=== PATIENT | female | born 1935 | race Caucasian/White ===

== ENCOUNTER 2019-08-09 16:30 | Inpatient (IN) ==
--- OUTSIDE RECORDS SUMMARY | 2019-08-09 16:32 | External Medical Summary | Continuity of Care Document ---
:1935 Author Name Jayesh MMirta, Provider Address Unavailable Unavailable , Care Team Providers Name Role Phone Unavailable Unavailable Unavailable ANGIE DELEON Unavailable Unavailable Problems Active medical history not documented Allergies and Adverse Reactions No Known Drug Allergies (Allergy) Medications Melatonin 3 MG Oral Tablet , M.D. Refills: 0 Tylenol Arthritis Pain 8 Hour 650 MG TBCR , M.D. Refills: 0 Vitamin D3 25 MCG (1000 UT) Oral Tablet , M.D. Refills: 0 Quinapril HCl - 40 MG Oral Tablet , M.D. Refills: 0 Methyldopa 500 MG Oral Tablet , M.D. Refills: 0 Atenolol 50 MG Oral Tablet , M.D. Refills: 0 Procedures History of Hysterectomy Status: Complete d History of Total Knee Arthroplasty Statu s: Completed Immunizations Influenza On: 2010 Family History Father Family history of Reported Family History Of Heart Disease S tatus: Active Grandmother Family history of Cancer Status: Active Grandfather Family history of Reported Family History Of Heart Disease S tatus: Active Social History - Smoking Status Never smoked tobacco Plan of Treatment Planned Observations Planned Goals not documented Results No Known Results Results not documented
--- OUTSIDE RECORDS SUMMARY | 2019-08-09 16:33 | External Medical Summary | Continuity of Care Document ---
:1935 Author Name Jayesh M.Delmi, Provider Address Unavailable Unavailable , Care Team Providers Name Role Phone Unavailable Unavailable Unavailable ANGIE DELEON Unavailable Unavailable Problems Active medical history not documented Allergies and Adverse Reactions No Known Drug Allergies (Allergy) Medications Atenolol 50 MG Oral Tablet , M.D. Refills: 0 Methyldopa 500 MG Oral Tablet , M.D. Refills: 0 Quinapril HCl - 40 MG Oral Tablet , M.D. Refills: 0 Vitamin D3 25 MCG (1000 UT) Oral Tablet , M.D. Refills: 0 Tylenol Arthritis Pain 8 Hour 650 MG TBCR , M.D. Refills: 0 Melatonin 3 MG Oral Tablet , M.D. [...]
[2019-08-09 19:35] LABS: Basophils # (auto) 0.04 K/uL (0-0.2); Basophils % (auto) 0.4 %; Eosinophils # (auto) 0.05 K/uL (0-0.5); Eosinophils % (auto) 0.5 %; Hematocrit (blood only) 48.3 % (37-47); Hemoglobin 16.2 g/dL (12.0-16.0); Immature Granulocytes # (auto) 0.24 K/uL (0.00-0.02); Immature Granulocytes % (auto) 2.2 %; Lymphocytes # (auto) 1.71 K/uL (1.2-3.4); Mean Corpuscular Hemoglobin 29.8 pg (25-34); Mean Corpuscular Hgb Conc 33.5 g/dL (32-36); Mean Corpuscular Volume 88.8 fL (80-100); Mean Platelet Volume 10.3 fL (7.4-10.4); Monocytes # (auto) 0.76 K/uL (0.11-0.59); Monocytes % (auto) 7.1 %; Neutrophils # (auto) 7.91 K/uL (1.4-6.5); Neutrophils % (auto) 73.8 %; Platelet Count 334 K/uL (130-400); RDW Coefficient of Variation 14.4 % (11.5-14.5); RDW Standard Deviation 46.9 fL (36.4-46.3); Red Blood Count 5.44 M/uL (4.2-5.4); White Blood Count 10.71 K/uL (4.8-10.8)
--- NOTE | 2019-08-09 19:41 | XRay Report ---
SINGLE VIEW CHEST CLINICAL HISTORY: Atypical chest pain. FINDINGS: An AP, portable, upright chest radiograph is obtained No prior studies are available for co mparison at the time of dictation. The examination is degraded by portable technique and patient rota tion. The heart is enlarged. The mitral annulus is densely calcified. Nonspecific interstitial thicke brendan is likely chronic. Scattered calcified granulomas are observed. No airspace consolidation or lar ge pleural effusion is identified. No pneumothorax is seen. The skeletal structures are osteopenic. T he bony thorax is grossly intact. Calcified joint bodies are noted in the left shoulder. IMPRESSION: Cardiomegaly with no acute cardiopulmonary abnormality. ACT 112: Negative or not required by law. Electronically signed by: Haroldo Mercer M.D. 08/09/2019 7:39 PM
[2019-08-09 19:42] LABS: Alanine Aminotransferase 20 U/L (12-78); Albumin Level 4.2 gm/dl (3.4-5.0); Aspartate Aminotransferase 17 U/L (15-37); BUN Creatinine Ratio 25.3 (10-20); Blood Urea Nitrogen 30 mg/dl (7-18); Calcium 10.2 mg/dl (8.5-10.1); Carbon Dioxide 27 mmol/L (21-32); Chloride 102 mmol/L (98-107); Creatinine Clr Calc Pharmacy 32.1 ml/min; Est GFR (African American) 47.4; Est GFR (Non-African American) 40.9; Glucose 123 mg/dl (70-99); Lipase 201 U/L (73-393); Magnesium 1.8 mg/dl (1.8-2.4); Sodium 139 mmol/L (136-145)
[2019-08-09 19:46] LABS: Partial Thromboplastin Ratio 0.9; Partial Thromboplastin Time 24.7 Seconds (21.0-31.0); Prothrombin Time 10.4 Seconds (9.0-12.0)
[2019-08-09 19:53] LABS: Albumin Globulin Ratio 1.1 (0.9-2); Alkaline Phosphatase 65 U/L (45-117); Bilirubin,Total 0.6 mg/dl (0.2-1); NT Pro B Type Natriuretic Pept 3907 pg/ml (0-1800); Total Protein 8.2 gm/dl (6.4-8.2); Troponin I < 0.015 ng/ml (0-0.045)
[2019-08-09 20:47] LABS: Appearance Urine Clear (Clear); Bacteria Urine Automated 1+ (Negative); Bilirubin Urine Negative (Negative); Blood Urine Negative (Negative); Color Urine Yellow; Epithelial Cell Urine Auto >30 /lpf (0-5); Glucose Urine UA Negative (Negative); Ketones Urine Negative (Negative); Leukocyte Esterase Urine Negative (Negative); Nitrite Urine Negative (Negative); Protein Urine 1+ (Negative); Specific Gravity Urine 1.016 (1.000-1.030); Urobilinogen Urine Negative (Negative)
[2019-08-09] MEDS ORDERED: SODIUM CHLORIDE 0.9% 500 ML IV ONE (21:39)
[2019-08-09] MEDS ORDERED: OPTIRAY 320 125ml IV PRN (21:55)
[2019-08-09] MEDS ORDERED: LABETALOL HCL IV 5 MG/ML 20ML IV STA (22:43)
[2019-08-09] MEDS ORDERED: NITROGLYCERIN 2% OINTMENT 30GM TUBE EXT SCH (23:15)
--- NOTE | 2019-08-09 23:20 | CT Scan Report ---
UNENHANCED CT OF THE BRAIN; CT ANGIOGRAM OF THE BRAIN; CT ANGIOGRAM OF THE NECK CLINICAL HISTORY: Dizziness. COMPARISON STUDY: No priors. TECHNIQUE: Unenhanced axial CT scan of the brain is performed. Subsequently, following the IV adminis tration of 120 of Opt[address] 320, CT angiogram of the head and neck was performed from the aortic arch t o the vertex. Images are reviewed in the axial, sagittal, and coronal planes. 3-D MIPS images are cre ated and assessed. IV contrast was administered without complication. All measurements were calculate d based on NASCET criteria. A dose lowering technique was utilized adhering to the principles of ALA RA. CT DOSE: 1067.93 mGy.cm FINDINGS: Brain parenchyma: There is age-related involutional change noting moderate subcortical and periventri cular microangiopathic disease. There is no hemorrhage, mass effect, or evidence of acute territorial ischemia by CT criteria. There is no evidence of enhancing mass lesion on the angiogram phase images . The ventricles, sulci, and cisterns are prominent secondary to involutional change. Bianchi-white ina er differentiation is preserved. No extra-axial fluid collection is seen. Thoracic aorta: Visualized portions of the thoracic aorta are normal in caliber. The aortic arch demo nstrates standard 3-vessel anatomy. Right carotid arterial system: The right common carotid artery is widely patent, as are the right int ernal and external carotid arteries. Left carotid arterial system: The left common carotid artery is widely patent, as are the left internal controls analyst al and external carotid arteries. Mild atherosclerotic plaque is noted in the carotid bulb. Vertebral arteries: The vertebral arteries are widely patent bilaterally and codominant. Subclavian arteries: Widely patent bilaterally. Intracranial vasculature: There is atherosclerotic calcification of the cavernous carotid and vertebr al arteries. The internal carotid arteries are patent at the skull base, as are the anterior and midd le cerebral arteries bilaterally. The vertebrobasilar system and posterior cerebral arteries are wide ly patent. The vertebral arteries are codominant. There is no aneurysm, high-grade stenosis, or focal vessel cut off seen throughout the intracranial circulation. Jugular veins: Patent bilaterally. Dural sinuses: Patent. Lung apices: Partially visualized upper lobe lung parenchyma appears clear. Soft tissues: The visualized pharyngeal soft tissues are normal in appearance noting angiographic pha se technique. The oropharyngeal airway appears widely patent. The salivary and thyroid glands are nor mal in appearance. No cervical lymphadenopathy is seen. Skeletal structures: The skeletal structures are osteopenic The calvarium appears intact. The cervica l spine is maintained noting mild multilevel spondylosis. No lytic or blastic lesion is seen. Orbits: The bony orbits are intact. Orbital contents are normal in appearance noting bilateral ocular lens implants. Sinuses and mastoids: There is trace mucosal thickening in the left maxillary antrum. The remaining p aranasal sinuses are clear. The mastoid air cells are well pneumatized. IMPRESSION: 1. There is no hemorrhage, mass effect, or evidence of acute territorial ischemia by CT criteria. 2. Unremarkable CT angiogram of the brain. 3. Unremarkable CT angiogram of the neck. ACT 112: Negative or not required by law. Electronically signed by: Haroldo Mercer M.D. 08/09/2019 11:19 PM
[2019-08-09] MEDS ORDERED: ONDANSETRON INJ 2 MG/ML 2 ML VIAL IV PRN (23:47)
[2019-08-09] MEDS ORDERED: ARTIFICIAL TEARS OP PRN (23:47)
[2019-08-09] MEDS ORDERED: POLYETHYLENE (MIRALAX) 17 GM PACK PO PRN (23:47)
[2019-08-09] MEDS ORDERED: Heparin IV Low Dose *NO* Bolus IV ONE (23:47)
[2019-08-09] MEDS ORDERED: LABETALOL HCL IV 5 MG/ML 20ML IV PRN (23:47)
[2019-08-09] MEDS ORDERED: NITROGLYCERIN SL 0.4 MG/TAB TAB SL PRN (23:47)
[2019-08-09] MEDS ORDERED: HEPARIN SODIUM/DEXTROSE 25,000 UNITS/500 ML BAG IV SCH (23:47)
--- NOTE | 2019-08-10 00:03 | History and Physical Report ---
DATE OF ADMISSION: 08/09/2019 CHIEF COMPLAINT: New-onset AFib. HISTORY OF PRESENT ILLNESS: This is an 84-year-old female with past medical history significant for hyperlipidemia, hypertension, chronic kidney disease stage III, urinary incontinence, osteoporosis, gout arthropathy, statin intolerance, who lives alone. He went to PCP because of some ongoing shortness of breath with exertion for a week and imbalance, shaky legs while ambulating since 1 week, and dizziness last 2-3 days. In the PCP's office, the blood pressure was high and she was found to be in new-onset AFib, which was rate controlled and she was advised to come to the ER. Currently resting comfortable and hemodynamically stable. Denies any chest pain. Denies any palpitations. She has a mild headache. No earache. She has some runny nose from allergies. Denies any sore throat. No loss of sense of smell or taste. No dysphagia. Appetite is okay. No nausea, no abdominal pain. Stools are loose, but denies any blood in the stools. She has some incontinence of the urine for some time. No swelling in the legs. ALLERGIES: AMLODIPINE, HYDRALAZINE, SIMVASTATIN. PAST MEDICAL HISTORY: As mentioned above. PAST SURGICAL HISTORY: Colonoscopy, left knee replacement, bilateral removal of cataract surgeries, tonsillectomy, adenoidectomy, vaginal hysterectomy. MEDICATIONS: The patient is on atenolol 100 mg p.o. daily, lisinopril 30 mg p.o. daily, hydrochlorothiazide 12.5 mg p.o. daily, B complex 1 capsule daily, vitamin D 1000 units p.o. daily, melatonin 3 mg p.o. every night. FAMILY HISTORY: Significant for father has diabetes and heart disorder; mother has hypertension; daughter has hypertension. SOCIAL HISTORY: , currently lives alone. No smoking. Alcohol occasional. No drug use. REVIEW OF SYSTEMS: As per HPI. Rest of the review of systems negative. PHYSICAL EXAMINATION: GENERAL: The patient is old and frail, not in acute distress. VITAL SIGNS: Temperature 36.8, pulse 72, respiratory rate 20, blood pressure 250/146, oxygen 96% on room air. HEENT: No pallor, no icterus. Pupils equal, round, and reactive to light. Extraocular muscles intact. NECK: No JVD, no neck masses. CARDIOVASCULAR: S1, S2 heard, regular rate and rhythm, no murmur, no gallop. RESPIRATORY SYSTEM: Normal AP diameter. No accessory muscle use. No wheezing, no crackles. ABDOMEN: Soft, bowel sounds present, nontender, no distention. CENTRAL NERVOUS SYSTEM: Alert and oriented. Power 5/5 in all extremities. Sensation is intact. Coordination and movements normal. No pronator drift. Can lift and hold her lower extremities. Position sense intact. EXTREMITIES: No edema, no erythema. LABORATORY DATA: WBC 10.7, hemoglobin 16.2, hematocrit 48.3, platelets 334. PT 10.4, INR 1, APTT 24.7. Sodium 139, potassium 4, chloride 102, bicarbonate 27, BUN 30, creatinine 1.2, serum glucose 123, calcium 10.2, phosphorus 3, magnesium 1.8, total bilirubin 0.6, AST 17, ALT 20, alkaline phosphatase 65. Troponin I less than 0.015. BNP 3900. Lipase 201. TSH 2.3. Urinalysis, +1 bacteria. IMAGING DATA: Chest x-ray, cardiomegaly with no acute cardiopulmonary abnormality. CT of the head and CTA of the head and neck were done and the results are pending. EKG: Atrial fibrillation at a rate of 76 and Q-waves in inferior leads. ASSESSMENT AND PLAN: This 84-year-old female went to PCP office because of ongoing dizziness, imbalance, and shortness of breath on exertion and found to have hypertensive urgency and also new-onset atrial fibrillation. 1. New atrial fibrillation, rate is under control. The patient is also having some balance issues and dizziness. CT of the head and CTA of the head and neck are done and seems fine.. Started on IV heparin. For imbalance if any concerns, we will consider MRI scan in the a.m. Currently rate is under control. Continue home atenolol and will get serial enzymes. Echocardiogram and cardiac consult in the a.m. Monitor in tele floor.Bradycardia while sleeping 2. Hypertensive urgency. The patient is on lisinopril, hydrochlorothiazide, and atenolol at home, which will continue. We will place on nitro paste and labetalol p.r.n with holding parameters. for now and closely monitor in the tele floor. 3. Chronic kidney disease stage III, creatinine 1.2. We will follow the labs. 4. History of incontinence of urine, Needs followup 5. Deep venous thrombosis prophylaxis. on IV heparin. DISPOSITION: Admit to tele floor. Code status, full code as per my discussion with the patient. PT and OT prior to discharge. Social service to help with discharge planning. LUIS
--- NOTE | 2019-08-10 00:16 | Emergency Department Note ---
Impression & Plan Atrial fibrillation, new onset, Dizziness, Dehydration, Hypertension ED Provider Note NAME: JEFF SALDIVAR AGE: 84 SEX: F ARRIVES VIA: Walk-In INFORMANT: Patient, ED PROVIDER(S): Skyler Palacios MD CHIEF COMPLAINT: Dizziness, new Atrial Fibrillation (PCP referred) PLAN: Disposition: Admit MEDICAL DECISION MAKING: The patient is a pleasant 84-year-old woman with a past medical history of hypertension who presents emergency department for new onset A. fib after being seen at her PCPs office for approximately 2 weeks of sensation of feeling dizzy and short of breath with exertion. She denies fevers, cough, chest pain, n/v/d, urinary sx. On arrival the patient is no acute distress, afebrile with BP 220s/130s and otherwise with stable vital signs. She appears clinically dry. She has no focal neuro deficits. EKG demonstrates atrial fibrillation without overt ST elevation. WBC and platelets within normal limits. H/H 16.2/40.3 without recent values for comparison. Chemistry without acidosis. BUN 30 consistent with the patient's clinically dry appearance. Calcium 10.2 and electrolytes otherwise unremarkable. Troponin negative/undetectable. BNP 3900 likely related to the patient's A. fib and less likely volume overload given the patient's elevated BUN and polycythemia. UA without convincing evidence of infection. Given the patient's new onset atrial fibrillation in this elderly patient the patient was agreeable to be admitted for further evaluation. 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 Case was discussed with Dr. South, [facility] hospitalist, who evaluate the patient for admission. We did agree to proceed with heparin given CHADSVASC pending completion of CT scans. Of note, there was a delay tonight regarding the transfer of images to [facility] and so report was delayed. Ultimately CT scans were read by our radiologist. Subsequently CT of the head was negative for ICH or ischemia. CT of the head and neck negative for severe narrowing or occlusion of large vessels. Anticoagulation per admitting team. Triage Nursing notes reviewed and agree them. Prior medical records reviewed Vital Signs: reviewed and remarkable for hypertension. Differential diagnosis: Infection, dehydration, metabolic abnormality, hypo/hyperglycemia, electrolyte disturbance, anemia, hypoxia, cardiac sources, intracerebral event, toxicologic, neurologic, as well as other pathologies. ER treatment provided: See below. Diagnostics interpreted by me: ECG: Atrial fibrillation, 76 bpm, no ectopy, No overt ST elevation or depression, Cardiac Monitoring: An order for continuous cardiac monitoring was placed and demonstrated atrial fibrillation, 76 bpm, no ectopy Laboratory studies: See below Imaging studies: SINGLE VIEW CHEST CLINICAL HISTORY: Atypical chest pain. FINDINGS: An AP, portable, upright chest radiograph is obtained No prior studies are available for comparison at the time of dictation. The examination is degraded by portable technique and patient rotation. The heart is enlarged. The mitral annulus is densely calcified. Nonspecific interstitial thickening is likely chronic. Scattered calcified granulomas are observed. No airspace consolidation or large pleural effusion is identified. No pneumothorax is seen. The skeletal structures are osteopenic. The bony thorax is grossly intact. Calcified joint bodies are noted in the left shoulder. IMPRESSION: Cardiomegaly with no acute cardiopulmonary abnormality. ACT 112: Negative or not required by law. --- UNENHANCED CT OF THE BRAIN; CT ANGIOGRAM OF THE BRAIN; CT ANGIOGRAM OF THE NECK CLINICAL HISTORY: Dizziness. COMPARISON STUDY: No priors. TECHNIQUE: Unenhanced axial CT scan of the brain is performed. Subsequently, following the IV administration of 120 of Optiray 320, CT angiogram of the head and neck was performed from the aortic arch to the vertex. Images are reviewed in the axial, sagittal, and coronal planes. 3-D MIPS images are created and assessed. IV contrast was administered without complication. All measurements were calculated based on NASCET criteria. A dose lowering technique was utili zed adhering to the principles of ALARA. CT DOSE: 1067.93 mGy.cm FINDINGS: Brain parenchyma: There is age-related involutional change noting moderate subcortical and periventricular microangiopathic disease. There is no hemorrhage, mass effect, or evidence of acute territorial ischemia by CT crit eria. There is no evidence of enhancing mass lesion on the angiogram phase images. The ventricles, sulci, and cisterns are prominent secondary to involutional change. Bianchi-white matter differentiation is preserved. No extra- axial fluid collection is seen. Thoracic aorta: Visualized portions of the thoracic aorta are normal in caliber. The aortic arch demonstrates standard 3-vessel anatomy. Right carotid arterial system: The right common carotid artery is widely patent, as are the right internal and external carotid arteries. Left carotid arterial system: The left common carotid artery is widely patent, as are the left internal and external carotid arteries. Mild atherosclerotic plaque is noted in the carotid bulb. Vertebral arteries: The vertebral arteries are widely patent bilaterally and codominant. Subclavian arteries: Widely patent bilaterally. Intracranial vasculature: There is atherosclerotic calcification of the cavernous carotid and vertebral arteries. The internal carotid arteries are patent at the skull base, as are the anterior and middle cerebral arteries bilaterally. The vertebrobasilar system and posterior cerebral arteries are widely patent. The vertebral arteries are codominant. There is no aneurysm, high-grade stenosis, or focal vessel cut off seen throughout the intracranial circulation. Jugular veins: Patent bilaterally. Dural sinuses: Patent. Lung apices: Partially visualized upper lobe lung parenchyma appears clear. Soft tissues: The visualized pharyngeal soft tissues are normal in appearance noting angiographic phase technique. The oropharyngeal airway appears widely patent. The salivary and thyroid glands are normal in appearance. No cervical lymphadenopathy is seen. Skeletal structures: The skeletal structures are osteopenic The calvarium appears intact. The cervical spine is maintained noting mild multilevel spondylosis. No lytic or blastic lesion is seen. Orbits: The bony orbits are intact. Orbital contents are normal in appearance noting bilateral ocular lens implants. Sinuses and mastoids: There is trace mucosal thickening in the left maxillary antrum. The remaining paranasal sinuses are clear. The mastoid air cells are w ell pneumatized. IMPRESSION: 1. There is no hemorrhage, mass effect, or evidence of acute territorial ischemia by CT criteria. 2. Unremarkable CT angiogram of the brain. 3. Unremarkable CT angiogram of the neck. -- Consultation(s): [facility] patient for [facility]. HPI: The patient is a pleasant 84-year-old woman with a past medical history of hypertension who presents emergency department for new onset A. fib after being seen at her PCPs office for approximately 2 weeks of sensation of feeling dizzy and short of breath with exertion. She denies fevers, cough, chest pain, n/v/d, urinary sx. ROS: See above HPI for pertinent positives & negatives. A total of 10 systems reviewed and were otherwise negative. PAST MEDICAL HISTORY:See Below PAST SURGICAL HISTORY:See Below FAMILY HISTORY:See Below SOCIAL HISTORY:See Below HOME MEDICATIONS:See Below ALLERGIES:See Below VITALS:See Below PHYSICAL EXAMINATION: GENERAL: Awake, alert, fatigued-appearing, in no distress HENT: Normocephalic, atraumatic. Oropharynx with dry mucous membranes and otherwise unremarkable. EYES: Normal conjunctiva. Sclera non-icteric. EOMI. No nystamgus. PEARRL. NECK: Supple. No nuchal rigidity. FROM. No JVD. RESPIRATORY: Clear to auscultation. CARDIAC: Regular rate, irregular rhythm. Extremities warm and well perfused. Pulses equal. ABDOMEN: Soft, non-distended. No tenderness to palpation. No rebound or guarding. No masses. RECTAL: Deferred. MUSCULOSKELETAL: Chest examination reveals no tenderness. The back is symmetrical on inspection without obvious abnormality. There is no CVA tenderness to palpation. No joint edema. LOWER EXTREMITIES: Calves are equal size bilaterally and non-tender. No edema. No discoloration. NEURO: Normal sensorium. No sensory or motor deficits noted. 5/5 strength and SILT x 4 extremities. Cerebellar function intact including [id number], alternating palms, [id number]. SKIN: No rash or jaundice noted. Skyler Palacios MD Past Med/Surg History Medical History (Updated 08/10/19 @ 05:19 by Skyler Palacios MD) Hypertension Social History Preferred Language: Iranian Communication Ability: Effective Beliefs That Will Affect Care: None Current Living Situation: Alone Other Information That Helps Us Care for You: No Feels Safe at Home: Yes Safety Concerns: Feels Safe At This Time Smoking Status: Never smoker Hx Alcohol Use: Yes Alcohol type: wine Hx Substance Use: No Allergies Allergies Allergy/AdvReac Type Severity Reaction Status Date / Time amlodipine Allergy SWELLING Verified 08/09/19 19:56 IN EXTREMITIES hydralazine Allergy PURITIS Verified 08/09/19 19:56 simvastatin [From Zocor] AdvReac Muscle Pain Verified 08/09/19 19:56 Home Meds Home Medications Medication Instructions Recorded Confirmed atenolol [Tenormin] 100 mg PO DAILY 08/09/19 08/09/19 cholecalciferol (vitamin D3) 25 mcg PO DAILY 08/09/19 08/09/19 [Vitamin D3] hydrochlorothiazide 12.5 mg PO DAILY 08/09/19 08/09/19 lisinopril 30 mg PO DAILY 08/09/19 08/09/19 melatonin 3 mg PO HS 08/09/19 08/09/19 peg 400-propylene glycol [Systane 1 drp OPHTHALMIC (EYE) BID PRN 08/09/19 08/09/19 (propylene glycol)] vitamin B complex 1 tab PO DAILY 08/09/19 08/09/19 Results & Data (ED) Vital Signs Vital Signs - 24 hr 08/09/19 17:16 08/09/19 19:07 08/09/19 19:38 Temperature 36.8 C Temperature Source Oral Pulse Rate 81 Pulse Rate [Apical] 85 Respiratory Rate 20 18 Respiratory Effort / Characteristics Non-Labored Respiratory Depth Normal Blood Pressure 187/109 H Blood Pressure [Right Arm] 233/123 H Blood Pressure Mean 135 Blood Pressure Mean [Right Arm] 159 Blood Pressure Position Lying Pulse Oximetry 96 96 98 Oxygen Delivery Method Room Air Room Air Sepsis Recent Fever Within 48 Hours No Sepsis New/Unexplained Change in Mental Status No Sepsis Action Taken by Nursing No Action Required 08/09/19 19:43 08/09/19 20:39 08/09/19 21:35 Temperature Temperature Source Pulse Rate Pulse Rate [Apical] 78 83 67 Respiratory Rate 20 20 20 Respiratory Effort / Characteristics Respiratory Depth Blood Pressure Blood Pressure [Right Arm] 221/123 H 219/138 H 202/101 H Blood Pressure Mean Blood Pressure Mean [Right Arm] 155 165 134 Blood Pressure Position Pulse Oximetry 97 98 98 Oxygen Delivery Method Room Air Room Air Room Air Sepsis Recent Fever Within 48 Hours Sepsis New/Unexplained Change in Mental Status Sepsis Action Taken by Nursing Laboratory Data Attestation: I reviewed the patient's lab results. Result diagrams: 08/09/19 19:05 08/09/19 19:05 Lab Results 08/09/19 08/09/19 08/09/19 Range/Units 19:05 19:05 19:05 WBC 10.71 (4.8-10.8) K/uL RBC 5.44 H (4.2-5.4) M/uL Hgb 16.2 H (12.0-16.0) g/dL Hct 48.3 H (37-47) % MCV 88.8 (80-100) fL MCH 29.8 (25-34) pg MCHC 33.5 (32-36) g/dL RDW Std Deviation 46.9 H (36.4-46.3) fL RDW Coeff of Bob 14.4 (11.5-14.5) % Plt Count 334 (130-400) K/uL MPV 10.3 (7.4-10.4) fL Immature Gran % (Auto) 2.2 % Neut % (Auto) 73.8 % Lymph % (Auto) 16.0 % [place] % (Auto) 7.1 % Eos % (Auto) 0.5 % Baso % (Auto) 0.4 % Immature Gran # (Auto) 0.24 H (0.00-0.02) K/uL Neut # (Auto) 7.91 H (1.4-6.5) K/uL Lymph # (Auto) 1.71 (1.2-3.4) K/uL [place] # (Auto) 0.76 H (0.11-0.59) K/uL Eos # (Auto) 0.05 (0-0.5) K/uL Baso # (Auto) 0.04 (0-0.2) K/uL PT 10.4 (9.0-12.0) Seconds INR 1.0 (0.9-1.1) APTT 24.7 (21.0-31.0) Seconds PTT Ratio 0.9 Sodium 139 (136-145) mmol/L Potassium 4.0 (3.5-5.1) mmol/L Chloride 102 (98-107) mmol/L Carbon Dioxide 27 (21-32) mmol/L Anion Gap 9.0 (3-11) BUN 30 H (7-18) mg/dl Creatinine 1.20 (0.6-1.2) mg/dl Est Cr Clr Drug Dosing 32.1 ml/min Est GFR ( Amer) 47.4 Est GFR (Non-Af Amer) 40.9 BUN/Creatinine Ratio 25.3 H (10-20) Glucose 123 H (70-99) mg/dl Calcium 10.2 H (8.5-10.1) mg/dl Phosphorus 3.0 (2.5-4.9) mg/dl Magnesium 1.8 (1.8-2.4) mg/dl Total Bilirubin 0.6 (0.2-1) mg/dl AST 17 (15-37) U/L ALT 20 (12-78) U/L Alkaline Phosphatase 65 (45-117) U/L Troponin I < 0.015 (0-0.045) ng/ml NT-Pro-B Natriuret Pep 3907 H (0-1800) pg/ml Total Protein 8.2 (6.4-8.2) gm/dl Albumin 4.2 (3.4-5.0) gm/dl Globulin 4.0 (2.5-4.0) gm/dl Albumin/Globulin Ratio 1.1 (0.9-2) Lipase 201 (73-393) U/L TSH 2.380 (0.300-4.500) uIu/ml Urine Color Urine Appearance (Clear) Urine pH (4.5-7.5) Ur Specific Ashley (1.000-1.030) Urine Protein (Negative) Urine Glucose (UA) (Negative) Urine Ketones (Negative) Urine Blood (Negative) Urine Nitrite (Negative) Urine Bilirubin (Negative) Urine Urobilinogen (Negative) Ur Leukocyte Esterase (Negative) Urine WBC (Auto) (0-5) /hpf Urine RBC (Auto) (0-4) /hpf U Hyaline Cast (Auto) (0-5) /lpf U Epithel Cells (Auto) (0-5) /lpf Urine Bacteria (Auto) (Negative) 08/09/19 Range/Units 20:35 WBC (4.8-10.8) K/uL RBC (4.2-5.4) M/uL Hgb (12.0-16.0) g/dL Hct (37-47) % MCV (80-100) fL MCH (25-34) pg MCHC (32-36) g/dL RDW Std Deviation (36.4-46.3) fL RDW Coeff of Bob (11.5-14.5) % Plt Count (130-400) K/uL MPV (7.4-10.4) fL Immature Gran % (Auto) % Neut % (Auto) % Lymph % (Auto) % [place] % (Auto) % Eos % (Auto) % Baso % (Auto) % Immature Gran # (Auto) (0.00-0.02) K/uL Neut # (Auto) (1.4-6.5) K/uL Lymph # (Auto) (1.2-3.4) K/uL [place] # (Auto) (0.11-0.59) K/uL Eos # (Auto) (0-0.5) K/uL Baso # (Auto) (0-0.2) K/uL PT (9.0-12.0) Seconds INR (0.9-1.1) APTT (21.0-31.0) Seconds PTT Ratio Sodium (136-145) mmol/L Potassium (3.5-5.1) mmol/L Chloride (98-107) mmol/L Carbon Dioxide (21-32) mmol/L Anion Gap (3-11) BUN (7-18) mg/dl Creatinine (0.6-1.2) mg/dl Est Cr Clr Drug Dosing ml/min Est GFR ( Amer) Est GFR (Non-Af Amer) BUN/Creatinine Ratio (10-20) Glucose (70-99) mg/dl Calcium (8.5-10.1) mg/dl Phosphorus (2.5-4.9) mg/dl Magnesium (1.8-2.4) mg/dl Total Bilirubin (0.2-1) mg/dl AST (15-37) U/L ALT (12-78) U/L Alkaline Phosphatase (45-117) U/L Troponin I (0-0.045) ng/ml NT-Pro-B Natriuret Pep (0-1800) pg/ml Total Protein (6.4-8.2) gm/dl Albumin (3.4-5.0) gm/dl Globulin (2.5-4.0) gm/dl Albumin/Globulin Ratio (0.9-2) Lipase (73-393) U/L TSH (0.300-4.500) uIu/ml Urine Color Yellow Urine Appearance Clear (Clear) Urine pH 5.0 (4.5-7.5) Ur Specific Ashley 1.016 (1.000-1.030) Urine Protein 1+ H (Negative) Urine Glucose (UA) Negative (Negative) Urine Ketones Negative (Negative) Urine Blood Negative (Negative) Urine Nitrite Negative (Negative) Urine Bilirubin Negative (Negative) Urine Urobilinogen Negative (Negative) Ur Leukocyte Esterase Negative (Negative) Urine WBC (Auto) 1-5 (0-5) /hpf Urine RBC (Auto) 5-10 H (0-4) /hpf U Hyaline Cast (Auto) 1-5 (0-5) /lpf U Epithel Cells (Auto) >30 H (0-5) /lpf Urine Bacteria (Auto) 1+ H (Negative) Administered Medications Acetaminophen (Tylenol) 650 mg PO Q4H PRN PRN Reason: Pain or Fever Stop: 09/08/19 23:46 Last Admin: 08/10/19 00:28 Dose: 650 mg Documented by: [id number] Heparin Sodium/Dextrose (Heparin Sodium/Dextrose) 25,000 units in 500 mls @ 14 mls/hr IV .Q24H VAL; Protocol Stop: 09/08/19 23:46 Last Admin: 08/10/19 00:21 Dose: 700 units/hr, 14 mls/hr Documented by: [id number] Cosigned by: [id number] Discontinued Medications Heparin Sodium/Dextrose () 1 ea IV ONE ONE; Protocol Stop: 08/09/19 23:48 Last Admin: 08/10/19 00:07 Dose: 1 ea Documented by: [id number] Sodium Chloride (Nss) 500 mls @ 999 mls/hr IV .Q31M ONE Stop: 08/09/19 22:09 Last Infusion: 08/09/19 22:21 Dose: 0 mls/hr Documented by: [id number] Admin: 08/09/19 21:43 Dose: 999 mls/hr Documented by: [id number] Ioversol (Optiray 320 125ml) 120 ml IV ONCE PRN PRN Reason: Interaction Checking Stop: 08/13/19 21:54 Last Admin: 08/09/19 21:56 Dose: 120 ml Documented by: [id number] Labetalol HCl (Normodyne) 10 mg IV NOW STA Stop: 08/09/19 22:44 Last Admin: 08/09/19 22:49 Dose: 10 mg Documented by: [id number] Cosigned by: [id number] Nitroglycerin (Nitro-Bid 2%) 1 inch EXT Q6H VAL Stop: 09/08/19 23:14 Last Admin: 08/10/19 00:21 Dose: 1 inch Documented by: [id number] Blood Pressure Blood Pressure Findings: Elevated blood pressure Blood Pressure Disposition: further management by hospitalist Discharge Plan Visit Data *Final* Discharge Date/Time: 08/09/19 23:12 Chief Complaint: Referred by Doctor Stated Complaint: EKG ED Provider: Skyler Palacios Discharge Problem: Atrial fibrillation, new onset, Dizziness, Dehydration, Hypertension Patient Disposition: Admitted As Inpatient Discharge Instructions Interventions: ED Discharge Assessment Last Done: 08/09/19 23:12
[2019-08-10] MEDS: ACETAMINOPHEN 325 MG TAB PO PRN (00:28)
[2019-08-10] MEDS ORDERED: NURSING DECISION MEDICATION ONE (02:27)
[2019-08-10] MEDS ORDERED: NITROGLYCERIN 2% OINTMENT 30GM TUBE EXT SCH (06:00)
[2019-08-10 06:22] LABS: Basophils # (auto) 0.04 K/uL (0-0.2); Basophils % (auto) 0.4 %; Eosinophils # (auto) 0.14 K/uL (0-0.5); Eosinophils % (auto) 1.4 %; Hematocrit (blood only) 45.3 % (37-47); Hemoglobin 15.1 g/dL (12.0-16.0); Immature Granulocytes # (auto) 0.15 K/uL (0.00-0.02); Immature Granulocytes % (auto) 1.5 %; Lymphocytes # (auto) 2.26 K/uL (1.2-3.4); Mean Corpuscular Hemoglobin 29.6 pg (25-34); Mean Corpuscular Hgb Conc 33.3 g/dL (32-36); Mean Corpuscular Volume 88.8 fL (80-100); Mean Platelet Volume 10.1 fL (7.4-10.4); Monocytes # (auto) 0.78 K/uL (0.11-0.59); Monocytes % (auto) 7.6 %; Neutrophils # (auto) 6.91 K/uL (1.4-6.5); Neutrophils % (auto) 67.1 %; Platelet Count 300 K/uL (130-400); RDW Coefficient of Variation 14.4 % (11.5-14.5); RDW Standard Deviation 46.8 fL (36.4-46.3); White Blood Count 10.28 K/uL (4.8-10.8)
[2019-08-10 06:41] LABS: Partial Thromboplastin Ratio 1.7
[2019-08-10 06:48] LABS: Partial Thromboplastin Time 47.9 Seconds (21.0-31.0)
[2019-08-10 06:52] LABS: BUN Creatinine Ratio 24.7 (10-20); Calcium 9.3 mg/dl (8.5-10.1); Creatinine Clr Calc Pharmacy 34.6 ml/min; Est GFR (African American) 52.6; Est GFR (Non-African American) 45.4; Magnesium 1.8 mg/dl (1.8-2.4); Potassium 3.9 mmol/L (3.5-5.1)
[2019-08-10 06:57] LABS: Troponin I 0.023 ng/ml (0-0.045)
--- NOTE | 2019-08-10 07:17 | Electrocardiogram Report ---
Test Reason : Blood Pressure : / mmHG Vent. Rate : 076 BPM Atrial Rate : 375 BPM P-R Int : 000 ms QRS Dur : 074 ms QT Int : 364 ms P-R-T Axes : 000 -09 028 degrees QTc Int : 409 ms Atrial fibrillation Poor R wave progression, consider anterior SC vs. lead placement vs. LVH Abnormal ECG When compared with ECG of 09-JAN-2005 10:39, Atrial fibrillation has replaced Sinus rhythm Confirmed by Murtaza Hardy ([id number]) on 08/10/2019 7:17:10 AM Referred By: Myron Torres Confirmed By:aJmes Hardy
[2019-08-10] MEDS: CHOLECALCIFEROL 1,000 UNITS 25 MCG TAB PO SCH (08:01)
[2019-08-10] MEDS: lisinopriL 10 MG TAB PO SCH (08:01)
[2019-08-10] MEDS: hydroCHLOROthiazide 25 MG TAB PO SCH (08:01)
[2019-08-10] MEDS: VITAMIN B COMPLEX TAB PO SCH (08:02)
[2019-08-10] MEDS: ATENOLOL 50 MG TABLET PO SCH (08:02)
--- NOTE | 2019-08-10 08:24 | Cardiology Consultation ---
Date of Consultation August 10, 2019 Assessment & Plan (1) Atrial fibrillation, new onset: Duration of atrial fibrillation is unknown, possibly 1 month when she noted "difficulty taking a deep breath" and attributed symptoms to her anxiety. Onset may have also been approx 5 days ago at onset of dizziness/lightheadedness. CHADSVASC score of 4 (sex, age, HTN) correlating to 4.8% stroke risk We discussed risks/benefits of ongoing anticoagulation therapy. Prior to the last few days where she was experiencing lightheadedness/dizziness and gait instability, she reported no recent falls or issues with ambulation. No history of bleeding or anemia. Given her stroke risks, she would like to consider ongoing anticoagulation. We discussed the options in regards to Coumadin vs DOAC. She is interested in Eliquis as long as it is affordable. She is > 80, but her creatinine is < 1.5 and she weighs > 60 kg, therefore her dose would be Eliquis 5 mg BID. -We called her prescription to [facility] in [employer] and processed through her insurance - cost would be $45 per month. Will need to discuss if this is affordable. Otherwise, Coumadin will likely be her best option. Will continue her home dose atenolol for now at 100 mg daily Her ventricular rates are well controlled without significant wild or tachyarrhythmias. It is difficult to determine if her dizziness is related to afib vs hypertension vs dehydration. At this point, given duration of afib is unknown, likely needs anticoagulated for 1 month prior to considering cardioversion vs ongoing rate control. (2) Hypertensive urgency: Long history of difficult to control/labile hypertension Continue home dose atenolol and HCTZ. She was previously on higher dose lisinopril, but reduced due to hyperkalemia and worseing of her CKD. she was previously on methyldopa, but this was no longer availalbe and discontinued in Fall 2018. Atenolol was increased to 100 mg at that time. she has intolerances to amlodipine and hydralazine. Add felodipine 2.5 mg daily. Monitor for s/s of edema. Could also consider use of terazosin, but given her dizziness, hesitant to try. Could also consider discontinuation of atenolol for carvedilol. She received AM dose of atenolol, so will not make this change and see how she responds to addition of felodipine. Hopeful that as her BP improves, her dizziness will also improve (3) Dizziness: Multifactorial likely in setting of dehydration, afib, and hypertension Monitor closely. Hopeful her symptoms will resolve with above therapies before sending her home on anticoagulation if needed. No evidence of acute CVA on CT scan Case discussed with Dr. Hoyos. Will follow throughout hospitalization to assist with managing afib and BP Supervising Physician Co-Signing Physician Notes Patient seen and examined with Patricia Tee PA-C. Agree with findings and assessment as above. The pathophysiology and treatment options for atrial fibrillation were discussed with her at great lengths. We reviewed the pros and cons of anticoagulation therapy and the patient elects to start Eliquis. Patricia has contacted her pharmacy and the cost will be $45 a month which the patient is agreeable to. She was concerned because she had friends tell her that it could be upwards of $300 a month. She is somewhat hypertensive and felodipine will be initiated. General: Awake, alert and oriented x 3. No acute distress. HEENT: Normocephalic, atraumatic. Pupils equal, round and reactive to light and accommodation. Extraocular muscles are intact. Anicteric sclera. Moist mucous membranes. Neck: No JVD. No bruit. Cardiovascular: irregularly irregular, unable to appreciate murmur, rub or gallop. Pulmonary: Clear to auscultation bilaterally. No rales, rhonchi, or wheezing. Abdomen: Bowel sounds x 4, soft. No rebound, guarding or tenderness. No organomegaly. Extremities: No clubbing, cyanosis or edema. +2 pedal pulses bilaterally. Skin: Warm and dry. History of Present Illness Reason for Consultation: Afib; hypertensive urgency Requesting Physician: Dr. South Attending Physician: Dr. Hoyos History of Present Illness Patient is an 84-year-old female with past medical history significant for longstanding and difficult to control labile hypertension, dyslipidemia with statin intolerance, and chronic kidney disease. She denies any history of cardiac issues. Per review of outpatient records, she was evaluated in 2010 by [facility] cardiology secondary to hypertension and dys pnea. She underwent exercise stress echo which was equivocal for ischemia. She was to have follow-up cardiac catheterization due to abnormalities but it does not appear this was completed. She does not recall having this done and no records can be found. She failed to keep follow-up appointment. She has a long history of difficult to control hypertension. she is on atenolol 100 mg, HCTZ 12.5 mg daily, lisinopril 30 mg daily. She was previously on methyldopa but due to product backorder, this was stopped in fall 2018. Atenolol was increased from 50 to 100 mg at that time. She reports she was on lisinopril 40 mg previously, but this was reduced due to CKD and hyperkalemia. She reports allergies to amlodipine (records indicate she was taking 2.5 mg) which caused LE edema. She also reports intolerances to hydralazine due to pruritus. Patient reports she noted worsening shortness of breath and difficulty taking a deep breath approximately 1 month ago. She attributed these symptoms to her anxiety and requested refills of her Klonopin at that time. She was unaware of palpitations or tachypalpitations. She denies dizziness, lightheadedness or syncope/near syncope at that time. No chest pain. Approximately 4 days ago, patient reported feeling "weak in the legs". She also felt lightheaded and dizzy with minimal movement or ambulation. No syncope. No falls. Patient presented to PCP office yesterday with these complaints of dizziness. Was found to have significantly elevated uncontrolled hypertension and new onset atrial fibrillation with a controlled ventricular rate. Due to her symptoms and new findings, ER evaluation and admission was recommended. Upon arrival in ER, patient was hypertensive and treated with IV labetalol and nitro patch was placed. Serial cardiac enzymes negative but detectable at 0.024. EKG revealed atrial fibrillation with a controlled ventricular response without acute ST-T wave changes. She was started on IV heparin for anticoagul ation. BUN was elevated suggesting underlying dehydration. Started on IV fluids. Electrolytes stable. She was admitted for further evaluation and treatment. She denies history of acute GI bleeding, head trauma or intracranial hemorrhage. No history of significant anemia or need of transfusions. No frequent falls. Prior to this week, she denies gait instability. She lives independently and camara s her own chores without limitations. At time of consult, she remains in afib, rates controlled on her home dose atenolol. she is on IV heparin and treated with IV fluids due to dehydration. she still has some mild dizziness when standing and walking to restroom, but improved. Her BP remains significantly elevated. She received morning meds. She denies chest pain or unusual shortness of breath currently. She denies symptoms of palpitations. She denies orthopnea, PND, lower extremity edema. Allergies Allergy/AdvReac Type Severity Reaction Status Date / Time amlodipine Allergy SWELLING Verified 08/09/19 19:56 IN EXTREMITIES hydralazine Allergy PURITIS Verified 08/09/19 19:56 simvastatin [From Zocor] AdvReac Muscle Pain Verified 08/09/19 19:56 Home Medications Home Medications Medication Instructions Recorded Confirmed Type atenolol [Tenormin] 100 mg PO DAILY 08/09/19 08/09/19 History cholecalciferol (vitamin D3) 25 mcg PO DAILY 08/09/19 08/09/19 History [Vitamin D3] hydrochlorothiazide 12.5 mg PO DAILY 08/09/19 08/09/19 History lisinopril 30 mg PO DAILY 08/09/19 08/09/19 History melatonin 3 mg PO HS 08/09/19 08/09/19 History peg 400-propylene glycol [Systane 1 drp OPHTHALMIC (EYE) BID PRN 08/09/19 08/09/19 History (propylene glycol)] vitamin B complex 1 tab PO DAILY 08/09/19 08/09/19 History apixaban [Eliquis] 5 mg PO BID 30 Days #60 tab 08/10/19 Rx Patient History Medical History (Updated 08/11/19 @ 14:52 by Kris Hoyos DO) Hypertension Social History Preferred Language: Bruneian Communication Ability: Effective Beliefs That Will Affect Care: None Current Living Situation: Alone Other Information That Helps Us Care for You: No Feels Safe at Home: Yes Safety Concerns: Feels Safe At This Time Smoking Status: Never smoker Hx Alcohol Use: Yes Alcohol type: wine Hx Substance Use: No Review of Systems Review of Systems: All systems reviewed & are unremarkable except as noted in HPI & below Physical Exam Constitutional: WD/WN, vitals as above well developed and average body habitus; no acute distress and not ill appearing Eyes: PERRL, conjunctivae normal, anicteric sclerae Neck: trachea midline, no thyromegaly Respiratory: normal respiratory effort, lungs clear to auscultation Cardiovascular: Rate/Rhythm: + irregularly irregular Heart Sounds: no murmur Vessels: no JVD Extremities: no edema Gastrointestinal (Abdomen): normal bowel sounds, soft, nontender, no hepatosplenomegaly Musculoskeletal: no cyanosis or clubbing, extremities motor strength 5/5 Neurologic: PERRL, EOMI, accommodation nl, no face palsy, no dysarthria Psychiatric: A+Ox3, euthymic affect Results & Data ([facility]) Vital Signs (Past 12 Hours) Vital Signs Temp Pulse Resp BP Pulse Ox 08/10/19 03:37 36.5 C 60 17 178/91 H 96 08/10/19 01:25 155/94 H 08/10/19 00:26 216/111 H 08/09/19 23:51 36.5 C 83 18 207/132 H 97 08/09/19 23:13 75 20 182/109 H 94 08/09/19 23:06 77 20 188/103 H 95 08/09/19 22:45 72 20 253/146 H 96 08/09/19 21:35 67 20 202/101 H 98 08/09/19 20:39 83 20 219/138 H 98 Laboratory Results 08/10/19 08/10/19 08/10/19 Range/Units 05:59 05:59 05:59 WBC 10.28 (4.8-10.8) K/uL RBC 5.10 (4.2-5.4) M/uL Hgb 15.1 (12.0-16.0) g/dL Hct 45.3 (37-47) % MCV 88.8 (80-100) fL MCH 29.6 (25-34) pg MCHC 33.3 (32-36) g/dL RDW Std Deviation 46.8 H (36.4-46.3) fL RDW Coeff of Bob 14.4 (11.5-14.5) % Plt Count 300 (130-400) K/uL MPV 10.1 (7.4-10.4) fL Immature Gran % (Auto) 1.5 % Neut % (Auto) 67.1 % Lymph % (Auto) 22.0 % [place] % (Auto) 7.6 % Eos % (Auto) 1.4 % Baso % (Auto) 0.4 % Immature Gran # (Auto) 0.15 H (0.00-0.02) K/uL Neut # (Auto) 6.91 H (1.4-6.5) K/uL Lymph # (Auto) 2.26 (1.2-3.4) K/uL [place] # (Auto) 0.78 H (0.11-0.59) K/uL Eos # (Auto) 0.14 (0-0.5) K/uL Baso # (Auto) 0.04 (0-0.2) K/uL PT (9.0-12.0) Seconds INR (0.9-1.1) APTT 47.9 H* (21.0-31.0) Seconds PTT Ratio 1.7 Sodium 141 (136-145) mmol/L Potassium 3.9 (3.5-5.1) mmol/L Chloride 107 (98-107) mmol/L Carbon Dioxide 27 (21-32) mmol/L Anion Gap 7.0 (3-11) BUN 27 H (7-18) mg/dl Creatinine 1.10 (0.6-1.2) mg/dl Est Cr Clr Drug Dosing 34.6 ml/min Est GFR ( Amer) 52.6 Est GFR (Non-Af Amer) 45.4 BUN/Creatinine Ratio 24.7 H (10-20) Glucose 117 H (70-99) mg/dl Calcium 9.3 (8.5-10.1) mg/dl Phosphorus (2.5-4.9) mg/dl Magnesium 1.8 (1.8-2.4) mg/dl Total Bilirubin (0.2-1) mg/dl AST (15-37) U/L ALT (12-78) U/L Alkaline Phosphatase (45-117) U/L Troponin I 0.023 (0-0.045) ng/ml NT-Pro-B Natriuret Pep (0-1800) pg/ml Total Protein (6.4-8.2) gm/dl Albumin (3.4-5.0) gm/dl Globulin (2.5-4.0) gm/dl Albumin/Globulin Ratio (0.9-2) Lipase (73-393) U/L Vitamin B12 (211-911) pg/ml TSH (0.300-4.500) uIu/ml Urine Color Urine Appearance (Clear) Urine pH (4.5-7.5) Ur Specific Stryker (1.000-1.030) Urine Protein (Negative) Urine Glucose (UA) (Negative) Urine Ketones (Negative) Urine Blood (Negative) Urine Nitrite (Negative) Urine Bilirubin (Negative) Urine Urobilinogen (Negative) Ur Leukocyte Esterase (Negative) Urine WBC (Auto) (0-5) /hpf Urine RBC (Auto) (0-4) /hpf U Hyaline Cast (Auto) (0-5) /lpf U Epithel Cells (Auto) (0-5) /lpf Urine Bacteria (Auto) (Negative) 08/10/19 08/09/19 08/09/19 Range/Units 05:59 23:51 20:35 WBC (4.8-10.8) K/uL RBC (4.2-5.4) M/uL Hgb (12.0-16.0) g/dL Hct (37-47) % MCV (80-100) fL MCH (25-34) pg MCHC (32-36) g/dL RDW Std Deviation (36.4-46.3) fL RDW Coeff of Bob (11.5-14.5) % Plt Count (130-400) K/uL MPV (7.4-10.4) fL Immature Gran % (Auto) % Neut % (Auto) % Lymph % (Auto) % [place] % (Auto) % Eos % (Auto) % Baso % (Auto) % Immature Gran # (Auto) (0.00-0.02) K/uL Neut # (Auto) (1.4-6.5) K/uL Lymph # (Auto) (1.2-3.4) K/uL [place] # (Auto) (0.11-0.59) K/uL Eos # (Auto) (0-0.5) K/uL Baso # (Auto) (0-0.2) K/uL PT (9.0-12.0) Seconds INR (0.9-1.1) APTT (21.0-31.0) Seconds PTT Ratio Sodium (136-145) mmol/L Potassium (3.5-5.1) mmol/L Chloride (98-107) mmol/L Carbon Dioxide (21-32) mmol/L Anion Gap (3-11) BUN (7-18) mg/dl Creatinine (0.6-1.2) mg/dl Est Cr Clr Drug Dosing ml/min Est GFR ( Amer) Est GFR (Non-Af Amer) BUN/Creatinine Ratio (10-20) Glucose (70-99) mg/dl Calcium (8.5-10.1) mg/dl Phosphorus (2.5-4.9) mg/dl Magnesium (1.8-2.4) mg/dl Total Bilirubin (0.2-1) mg/dl AST (15-37) U/L ALT (12-78) U/L Alkaline Phosphatase (45-117) U/L Troponin I 0.024 (0-0.045) ng/ml NT-Pro-B Natriuret Pep (0-1800) pg/ml Total Protein (6.4-8.2) gm/dl Albumin (3.4-5.0) gm/dl Globulin (2.5-4.0) gm/dl Albumin/Globulin Ratio (0.9-2) Lipase (73-393) U/L Vitamin B12 682 (211-911) pg/ml TSH (0.300-4.500) uIu/ml Urine Color Yellow Urine Appearance Clear (Clear) Urine pH 5.0 (4.5-7.5) Ur Specific Stryker 1.016 (1.000-1.030) Urine Protein 1+ H (Negative) Urine Glucose (UA) Negative (Negative) Urine Ketones Negative (Negative) Urine Blood Negative (Negative) Urine Nitrite Negative (Negative) Urine Bilirubin Negative (Negative) Urine Urobilinogen Negative (Negative) Ur Leukocyte Esterase Negative (Negative) Urine WBC (Auto) 1-5 (0-5) /hpf Urine RBC (Auto) 5-10 H (0-4) /hpf U Hyaline Cast (Auto) 1-5 (0-5) /lpf U Epithel Cells (Auto) >30 H (0-5) /lpf Urine Bacteria (Auto) 1+ H (Negative) 08/09/19 08/09/19 08/09/19 Range/Units 19:05 19:05 19:05 WBC 10.71 (4.8-10.8) K/uL RBC 5.44 H (4.2-5.4) M/uL Hgb 16.2 H (12.0-16.0) g/dL Hct 48.3 H (37-47) % MCV 88.8 (80-100) fL MCH 29.8 (25-34) pg MCHC 33.5 (32-36) g/dL RDW Std Deviation 46.9 H (36.4-46.3) fL RDW Coeff of Bob 14.4 (11.5-14.5) % Plt Count 334 (130-400) K/uL MPV 10.3 (7.4-10.4) fL Immature Gran % (Auto) 2.2 % Neut % (Auto) 73.8 % Lymph % (Auto) 16.0 % [place] % (Auto) 7.1 % Eos % (Auto) 0.5 % Baso % (Auto) 0.4 % Immature Gran # (Auto) 0.24 H (0.00-0.02) K/uL Neut # (Auto) 7.91 H (1.4-6.5) K/uL Lymph # (Auto) 1.71 (1.2-3.4) K/uL [place] # (Auto) 0.76 H (0.11-0.59) K/uL Eos # (Auto) 0.05 (0-0.5) K/uL Baso # (Auto) 0.04 (0-0.2) K/uL PT 10.4 (9.0-12.0) Seconds INR 1.0 (0.9-1.1) APTT 24.7 (21.0-31.0) Seconds PTT Ratio 0.9 Sodium 139 (136-145) mmol/L Potassium 4.0 (3.5-5.1) mmol/L Chloride 102 (98-107) mmol/L Carbon Dioxide 27 (21-32) mmol/L Anion Gap 9.0 (3-11) BUN 30 H (7-18) mg/dl Creatinine 1.20 (0.6-1.2) mg/dl Est Cr Clr Drug Dosing 32.1 ml/min Est GFR ( Amer) 47.4 Est GFR (Non-Af Amer) 40.9 BUN/Creatinine Ratio 25.3 H (10-20) Glucose 123 H (70-99) mg/dl Calcium 10.2 H (8.5-10.1) mg/dl Phosphorus 3.0 (2.5-4.9) mg/dl Magnesium 1.8 (1.8-2.4) mg/dl Total Bilirubin 0.6 (0.2-1) mg/dl AST 17 (15-37) U/L ALT 20 (12-78) U/L Alkaline Phosphatase 65 (45-117) U/L Troponin I < 0.015 (0-0.045) ng/ml NT-Pro-B Natriuret Pep 3907 H (0-1800) pg/ml Total Protein 8.2 (6.4-8.2) gm/dl Albumin 4.2 (3.4-5.0) gm/dl Globulin 4.0 (2.5-4.0) gm/dl Albumin/Globulin Ratio 1.1 (0.9-2) Lipase 201 (73-393) U/L Vitamin B12 (211-911) pg/ml TSH 2.380 (0.300-4.500) uIu/ml Urine Color Urine Appearance (Clear) Urine pH (4.5-7.5) Ur Specific Stryker (1.000-1.030) Urine Protein (Negative) Urine Glucose (UA) (Negative) Urine Ketones (Negative) Urine Blood (Negative) Urine Nitrite (Negative) Urine Bilirubin (Negative) Urine Urobilinogen (Negative) Ur Leukocyte Esterase (Negative) Urine WBC (Auto) (0-5) /hpf Urine RBC (Auto) (0-4) /hpf U Hyaline Cast (Auto) (0-5) /lpf U Epithel Cells (Auto) (0-5) /lpf Urine Bacteria (Auto) (Negative) Diagnostic Findings Telemetry reviewed: Atrial fibrillation with relatively well-controlled v entricular rate ranging mid 50s to 80 bpm. Repeat EKG 08/10/19: Atrial fibrillation with a ventricular rate of 66 bpm Left axis deviation Possible Lateral infarct (cited on or before 10-AUG-2019) Abnormal ECG When compared with ECG of 09-AUG-2019 17:13, Criteria for Inferior infarct are no longer Present EKG on admission: Atrial fibrillation with controlled ventricular rate at 76 bpm Poor R wave progression, consider anterior LA vs. lead placement vs. LVH Abnormal ECG When compared with ECG of 09-JAN-2005 10:39, Atrial fibrillation has replaced Sinus rhythm Chest Xray on admission: IMPRESSION: Cardiomegaly with no acute cardiopulmonary abnormality. Head/ Neck CTA on admission: IMPRESSION: 1. There is no hemorrhage, mass effect, or evidence of acute territorial ischemia by CT criteria. 2. Unremarkable CT angiogram of the brain. 3. Unremarkable CT angiogram of the neck Medications Administered Current Inpatient Medications Acetaminophen (Tylenol) 650 mg PO Q4H PRN PRN Reason: Pain or Fever Stop: 09/08/19 23:46 Last Admin: 08/10/19 00:28 Dose: 650 mg Documented by: Artificial Tears (Artificial Tears) 1 drops OP BID PRN PRN Reason: Dry Eyes Stop: 09/09/19 23:46 Atenolol (Tenormin) 100 mg PO DAILY VAL Stop: 09/09/19 08:59 Last Admin: 08/10/19 08:02 Dose: 100 mg Documented by: Hydrochlorothiazide (Hctz) 12.5 mg PO DAILY VAL Stop: 09/09/19 08:59 Last Admin: 08/10/19 08:01 Dose: 12.5 mg Documented by: Heparin Sodium/Dextrose (Heparin Sodium/Dextrose) 25,000 units in 500 mls @ 14 mls/hr IV .Q24H VAL; Protocol Stop: 09/08/19 23:46 Last Titration: 08/10/19 06:49 Dose: 700 units/hr, 14 mls/hr Documented by: Labetalol HCl (Normodyne) 10 mg IV Q4H PRN PRN Reason: Hypertension Stop: 09/08/19 23:46 Lisinopril (Zestril) 30 mg PO DAILY VAL Stop: 09/09/19 08:59 Last Admin: 08/10/19 08:01 Dose: 30 mg Documented by: Melatonin (Melatonin) 3 mg PO HS VAL Stop: 09/09/19 20:59 Nitroglycerin (Nitrostat) 0.4 mg SL UD PRN PRN Reason: Chest Pain Stop: 09/08/19 23:46 Nitroglycerin (Nitro-Bid 2%) 0.5 inch EXT Q6H VAL Stop: 09/09/19 05:59 Last Admin: 08/10/19 05:47 Dose: 0.5 inch Documented by: Ondansetron HCl (Zofran) 4 mg IV Q6H PRN PRN Reason: Nausea Stop: 09/08/19 23:46 Polyethylene Glycol (Miralax Powder Packet) 17 gm PO DAILY PRN PRN Reason: Constipation Stop: 09/08/19 23:46 Vitamin B Complex (Vitamin B Complex) 1 tab PO DAILY VAL Stop: 09/09/19 08:59 Last Admin: 08/10/19 08:02 Dose: 1 tab Documented by: Vitamin D (Vitamin D3) 1,000 units PO DAILY VAL Stop: 09/09/19 08:59 Last Admin: 08/10/19 08:01 Dose: 1,000 units Documented by:
[2019-08-10] MEDS: FELODIPINE 2.5 MG TABCR PO SCH (11:10)
--- NOTE | 2019-08-10 12:17 | Electrocardiogram Report ---
Test Reason : Blood Pressure : / mmHG Vent. Rate : 066 BPM Atrial Rate : 000 BPM P-R Int : 000 ms QRS Dur : 074 ms QT Int : 438 ms P-R-T Axes : 000 -36 017 degrees QTc Int : 459 ms Atrial fibrillation Left axis deviation Poor R wave progression, consider anterior WA vs. lead placement vs. LVH Abnormal ECG When compared with ECG of 09-AUG-2019 17:13, Criteria for Inferior infarct are no longer Present Confirmed by Murtaza Hardy ([id number]) on 08/10/2019 12:17:15 PM Referred By: Myron Torres Confirmed By:James Hardy
--- NOTE | 2019-08-10 16:30 | Hospitalist Progress Note ---
Date of Service August 10, 2019 Assessment & Plan (1) Atrial fibrillation, new onset: rate controlled at this point appeciate input from Cardiology pt is continued with atenolol 100 mg daily anticoagulation ; ordered for Eliquis monitor in tele (2) Hypertensive urgency: SBP > 200 on Atenolol 100 mg daily pt is continued with out pt dose of HCTZ , intolerant to norvasc due to lower ext swelling /Hydralazine listed as allergy ( causes prurittis ) added low dose Felodipine BP improved after addition of Felodipine 2.5 mg daily cardiology following (3) Dizziness: possible due to Afib , hypertensive urgency symptoms has resolved no recent fall monitor in tele PT/OT eval CODE STATUS : FULL CODE DVT PROPHYLAXIS ; ELIQUIS DISPOSITION : Expected to be discharged home when medically stable Admission and Anticipated Discharge Date Admission Date: August 09, 2019 Subjective pr reports of feeling well no chest pain or SOB feels MATUTE , fatigue has improved no fever or chills Review of Systems Review of Systems: All systems reviewed & are unremarkable except as noted in HPI & below Physical Exam Constitutional: WD/WN, vitals as above Eyes: PERRL, conjunctivae normal, anicteric sclerae ENMT: external ear and nose normal, oropharynx normal Neck: trachea midline, no thyromegaly Respiratory: normal respiratory effort, lungs clear to auscultation Cardiovascular: Rate/Rhythm: + abnormal rate and + abnormal rhythm Gastrointestinal (Abdomen): Percussion/Palpation: abdomen soft; abdomen nontender Musculoskeletal: no cyanosis or clubbing, extremities motor strength 5/5 Skin: no rashes, warm and dry Neurologic: PERRL, EOMI, accommodation nl, no face palsy, no dysarthria Psychiatric: A+Ox3, euthymic affect Results & Data Results & Data ([facility]) Vital Signs (Past 12 Hours) Vital Signs Temp Pulse Pulse Pulse Resp BP BP 08/10/19 15:19 36.6 C 57 L 21 154/89 H 08/10/19 12:14 76 18 138/91 08/10/19 11:59 36.6 C 74 08/10/19 11:29 36.6 C 74 18 148/85 H 08/10/19 09:13 63 188/102 H 08/10/19 08:00 63 08/10/19 07:42 36.6 C 62 18 190/108 H 195/116 H Pulse Ox 08/10/19 15:19 94 08/10/19 12:14 93 08/10/19 11:59 95 08/10/19 11:29 95 08/10/19 09:13 08/10/19 08:00 08/10/19 07:42 92
[2019-08-10] MEDS: APIXABAN 5 MG TABLET PO SCH (18:24)
[2019-08-10] MEDS: MELATONIN 3 MG TAB PO SCH (20:46)
[2019-08-10] MEDS ORDERED: APIXABAN 5 MG TABLET PO SCH (21:00)
--- NOTE | 2019-08-11 07:11 | Hospitalist Progress Note ---
Date of Service August 11, 2019 Assessment & Plan Admission and Anticipated Discharge Date Admission Date: August 09, 2019 Subjective Having bradycardia while sleeping. Heart rates into 30's and 20's. MAy need to reduce atenolol dose. Will notify am providers. Results & Data Results & Data ([facility]) Vital Signs (Past 12 Hours) Vital Signs Temp Pulse Pulse Resp BP BP Pulse Ox 08/11/19 03:52 36.5 C 61 16 146/83 H 96 08/10/19 23:31 65 08/10/19 23:23 36.7 C 62 16 147/73 H 91 08/10/19 20:49 176/99 H 08/10/19 19:15 36.7 C 59 L 19 184/100 H 94
[2019-08-11 08:03] LABS: Creatinine Clr Calc Pharmacy 35.5 ml/min; Est GFR (African American) 54.4; Magnesium 1.7 mg/dl (1.8-2.4); Potassium 3.9 mmol/L (3.5-5.1)
[2019-08-11] MEDS: lisinopriL 10 MG TAB PO SCH (08:44)
[2019-08-11] MEDS: ATENOLOL 50 MG TABLET PO SCH (08:44)
[2019-08-11] MEDS: APIXABAN 5 MG TABLET PO SCH ×2 (08:45→20:42)
[2019-08-11] MEDS: VITAMIN B COMPLEX TAB PO SCH (08:46)
[2019-08-11] MEDS: hydroCHLOROthiazide 25 MG TAB PO SCH (08:46)
[2019-08-11] MEDS: FELODIPINE 2.5 MG TABCR PO SCH (08:46)
[2019-08-11] MEDS: CHOLECALCIFEROL 1,000 UNITS 25 MCG TAB PO SCH (08:48)
[2019-08-11] MEDS ORDERED: MAGNESIUM SULFATE / D5W 1 GM/100 ML BAG IV ONE (09:35)
--- NOTE | 2019-08-11 14:46 | Hospitalist Progress Note ---
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 and HR dropped in the 30's Case discussed with cardiology and recommended to discontinue the Atenolol for now Continue monitor in tele (3) Hypertensive urgency: SBP > 200 on admission Continue Lisinopril 30mg and Felodipine 2.5 mg Atenolol on hold due to bradycardia BP improved Continue Monitor closely (4) Dizziness: Possible due to Afib and hypertensive urgency CT head/neck showed no hemorrhage, mass effect, or evidence of acute territorial ischemia Continue PT/OT Fall precaution Clinically improves CODE STATUS : FULL CODE DVT PROPHYLAXIS on ELIQUIS DISPOSITION : Continue monitor in tele Admission and Anticipated Discharge Date Admission Date: August 09, 2019 Subjective Pt was seen and examined Sitting i chair with no distress Pt said that she feels a little better She said that she feels a little dizzy when she tried to walk to the bathroom this morning She had 2 brief episodes of pause on telemonitor Denies any chest pain, palpitation, SOB and SOB Physical Exam Physical Exam: General- No acute distress Head- atraumatic Eyes- PERRL, EOMI, ENT- oropharynx clear Neck- supple, no JVD Lungs- clear to auscultation Heart- irregular rhythm; no murmur Abdomen- normal bowel sounds, soft, nontender Extremities- no calf tenderness Neuro- alert, oriented x 3; PERRL, EOMI; no facial palsy; no dysarthria Skin- warm & dry Results & Data Results & Data ([facility]) Vital Signs (Past 12 Hours) Vital Signs Temp Pulse Resp BP BP Pulse Ox 08/11/19 12:15 36.8 C 77 18 138/81 97 08/11/19 07:38 36.5 C 51 L 18 160/102 H 94 08/11/19 03:52 36.5 C 61 16 146/83 H 96
--- NOTE | 2019-08-11 14:53 | Cardiology Progress Note ---
Date of Service August 11, 2019 Assessment & Plan (1) Atrial fibrillation, new onset: Duration of atrial fibrillation is unknown, possibly 1 month when she noted "difficulty taking a deep breath" and attributed symptoms to her anxiety. Onset may have also been approx 5 days ago at onset of diz ziness/lightheadedness. CHADSVASC score of 4 (sex, age, HTN) correlating to 4.8% stroke risk We discussed risks/benefits of ongoing anticoagulation therapy. Prior to the last few days where she was experiencing lightheadedness/dizziness and gait instability, she reported no recent falls or issues with ambulation. No history of bleeding or anemia. Given her stroke risks, she would like to consider ongoing anticoagulation. We discussed the options in regards to Coumadin vs DOAC. She is interested in Eliquis as long as it is affordable. She is > 78, but her creatinine is < 1.5 and she weighs > 60 kg, therefore her dose would be Eliquis 5 mg BID. -We called her prescription to [facility] in [facility] and processed through her insurance - cost would be $45 per month. Will need to discuss if this is affordable. Otherwise, Coumadin will likely be her best option. Has remained in atrial fibrillation with slow ventricular response. Atenolol to be held due to concerns for tachybradycardia syndrome. Continue to monitor on telemetry. (2) Hypertensive urgency: Long history of difficult to control/labile hypertension Continue home dose atenolol and HCTZ. She was previously on higher dose lisinopril, but reduced due to hyperkalemia and worseing of her CKD. she was previously on methyldopa, but this was no longer availalbe and discontinued in Fall 2018. Atenolol was increased to 100 mg at that time. she has intolerances to amlodipine and hydralazine. Now well controlled with the addition of felodipine. States the dizziness is improved somewhat but has not completely resolved. (3) Dizziness: Multifactorial likely in setting of dehydration, afib, and hypertension Monitor closely. Hopeful her symptoms will resolve with above therapies before sending her home on anticoagulation if needed. No evidence of acute CVA on CT scan Case discussed with Dr. Hoyos. Will follow throughout hospitalization to assist with managing afib and BP (4) Tachy-wild syndrome: This is now a concern with her heart rates overnight. We will discontinue atenolol at this time. Continue to monitor on telemetry overnight. Should she remain bradycardic with pauses despite being off beta-blockade then consideration may have to be given to permanent pacemaker placement. Subjective Patient seen and examined, chart reviewed. Currently sitting out of bed in chair comfortably. Denies any complaints except for some slight dizziness with ambulation. Denies chest pain, shortness of breath, palpitations, lightheadedness, dizziness or syncope. States that she would have no issues with affording [employer] at $45 a month. Telemetry reviewed: Atrial fibrillation with slow ventricular response including episodes of bradycardia into the 30s and 3-second pauses. Review of Systems Review of Systems: All systems reviewed & are unremarkable except as noted in HPI & below Physical Exam Physical Exam: General: Awake, alert and oriented x 3. No acute distress. HEENT: Normocephalic, atraumatic. Pupils equal, round and reactive to light and accommodation. Extraocular muscles are intact. Anicteric sclera. Moist mucous membranes. Neck: No JVD. No bruit. Cardiovascular: irregularly irregular, unable to appreciate murmur, rub or gallop. Pulmonary: Clear to auscultation bilaterally. No rales, rhonchi, or wheezing. Abdomen: Bowel sounds x 4, soft. No rebound, guarding or tenderness. No organomegaly. Extremities: No clubbing, cyanosis or edema. +2 pedal pulses bilaterally. Skin: Warm and dry. Results & Data Vital Signs (Past 12 Hours) Vital Signs Temp Pulse Resp BP BP Pulse Ox 08/11/19 12:15 36.8 C 77 18 138/81 97 08/11/19 07:38 36.5 C 51 L 18 160/102 H 94 08/11/19 03:52 36.5 C 61 16 146/83 H 96
--- NOTE | 2019-08-11 15:26 | Electrocardiogram Report ---
Test Reason : Blood Pressure : / mmHG Vent. Rate : 058 BPM Atrial Rate : 000 BPM P-R Int : 000 ms QRS Dur : 072 ms QT Int : 466 ms P-R-T Axes : 000 -32 028 degrees QTc Int : 457 ms Atrial fibrillation with slow ventricular response Left axis deviation Cannot rule out Anterior infarct (cited on or before 10-AUG-2019) Abnormal ECG When compared with ECG of 10-AUG-2019 07:23, No significant change was found Confirmed by Murtaza Hardy ([id number] on 08/11/2019 3:25:55 PM Referred By: Myron Torres Confirmed By:James Hardy
[2019-08-11] MEDS: ACETAMINOPHEN 325 MG TAB PO PRN (18:05)
[2019-08-11] MEDS: MELATONIN 3 MG TAB PO SCH (20:42)
[2019-08-12] MEDS: FELODIPINE 5 MG TABCR PO SCH ×2 (03:31→03:46)
[2019-08-12 07:44] LABS: Hematocrit (blood only) 43.5 % (37-47); Hemoglobin 14.7 g/dL (12.0-16.0); Mean Corpuscular Hemoglobin 29.3 pg (25-34); Mean Corpuscular Hgb Conc 33.8 g/dL (32-36); Mean Corpuscular Volume 86.8 fL (80-100); Mean Platelet Volume 10.4 fL (7.4-10.4); Platelet Count 301 K/uL (130-400); RDW Coefficient of Variation 14.2 % (11.5-14.5); RDW Standard Deviation 44.9 fL (36.4-46.3); Red Blood Count 5.01 M/uL (4.2-5.4); White Blood Count 7.98 K/uL (4.8-10.8)
[2019-08-12] MEDS: APIXABAN 5 MG TABLET PO SCH (08:26)
[2019-08-12] MEDS: hydroCHLOROthiazide 25 MG TAB PO SCH (08:26)
[2019-08-12] MEDS: lisinopriL 10 MG TAB PO SCH (08:26)
[2019-08-12] MEDS: VITAMIN B COMPLEX TAB PO SCH (08:26)
[2019-08-12] MEDS: CHOLECALCIFEROL 1,000 UNITS 25 MCG TAB PO SCH (08:26)
[2019-08-12] MEDS ORDERED: ATENOLOL 50 MG TABLET PO SCH (11:15)
--- NOTE | 2019-08-12 13:32 | Hospitalist Progress Note ---
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 and HR dropped in the 30's Case discussed with cardiology and recommended to decrease Atenolol top 50mg Asymptomatic Follow up with cardiology outpatient (3) Hypertensive urgency: SBP > 200 on admission Continue Lisinopril 30mg Felodipine increased to 5 mg Atenolol decrease to 50mg due to bradycardia BP improved Continue Monitor closely (4) Dizziness: Possible due to Afib and hypertensive urgency CT head/neck showed no hemorrhage, mass effect, or evidence of acute territorial ischemia Continue PT/OT Fall precaution Clinically improves CODE STATUS : FULL CODE DVT PROPHYLAXIS on ELIQUIS DISPOSITION : Discharge home today Admission and Anticipated Discharge Date Admission Date: August 09, 2019 Subjective Pt was seen and examined. Sitting in bed with no distress Pt said that she did not sleep well last night because her blood pressure was high She said that she does not have any dizziness now Denies any chest pain, palpitation, dizziness and SOB Physical Exam Physical Exam: General- No acute distress Head- atraumatic Eyes- PERRL, EOMI, ENT- oropharynx clear Neck- supple, no JVD Lungs- clear to auscultation Heart- irregular rhythm; no murmur Abdomen- normal bowel sounds, soft, nontender Extremities- no calf tenderness Neuro- alert, oriented x 3; PERRL, EOMI; no facial palsy; no dysarthria Skin- warm & dry Results & Data Results & Data ([facility]) Vital Signs (Past 12 Hours) Vital Signs Temp Pulse Resp BP BP Pulse Ox 08/12/19 11:16 36.7 C 74 18 143/91 H 91 08/12/19 07:23 36.8 C 76 18 157/91 H 94 08/12/19 03:40 36.4 C L 68 18 195/102 H 97
--- NOTE | 2019-08-12 14:03 | Cardiology Progress Note ---
Date of Service August 12, 2019 Assessment & Plan (1) Atrial fibrillation, new onset: Duration of atrial fibrillation is unknown, possibly 1 month when she noted "difficulty taking a deep breath" and attributed symptoms to her anxiety. Onset may have also been approx 5 days ago at onset of diz ziness/lightheadedness. CHADSVASC score of 4 (sex, age, HTN) correlating to 4.8% stroke risk We discussed risks/benefits of ongoing anticoagulation therapy. Prior to the last few days where she was experiencing lightheadedness/dizziness and gait instability, she reported no recent falls or issues with ambulation. No history of bleeding or anemia. Given her stroke risks, she would like to consider ongoing anticoagulation. We discussed the options in regards to Coumadin vs DOAC. She is interested in Eliquis as long as it is affordable. She is > 78, but her creatinine is < 1.5 and she weighs > 60 kg, therefore her dose would be Eliquis 5 mg BID. -We called her prescription to [facility] in [place] and processed through her insurance - cost would be $45 per month. Will need to discuss if this is affordable. Otherwise, Coumadin will likely be her best option. Has remained in atrial fibrillation with slow ventricular response. To be discharged home on atenolol 50 mg daily. Continue to monitor on telemetry. (2) Hypertensive urgency: Long history of difficult to control/labile hypertension Continue home dose atenolol and HCTZ. She was previously on higher dose lisinopril, but reduced due to hyperkalemia and worseing of her CKD. she was previously on methyldopa, but this was no longer availalbe and discontinued in Fall 2018. Atenolol was increased to 100 mg at that time. she has intolerances to amlodipine and hydralazine. Now well controlled with the addition of felodipine. States the dizziness is improved somewhat but has not completely resolved. (3) Dizziness: Multifactorial likely in setting of dehydration, afib, and hypertension Monitor closely. Hopeful her symptoms will resolve with above therapies before sending her home on anticoagulation if needed. No evidence of acute CVA on CT scan Case discussed with Dr. Hoyos. Will follow throughout hospitalization to assist with managing afib and BP Subjective Patient seen and examined, chart reviewed. Sitting upright in bed states overall she feels well. Review of Systems Review of Systems: All systems reviewed & are unremarkable except as noted in HPI & below Physical Exam Physical Exam: General: Awake, alert and oriented x 3. No acute distress. HEENT: Normocephalic, atraumatic. Pupils equal, round and reactive to light and accommodation. Extraocular muscles are intact. Anicteric sclera. Moist mucous membranes. Neck: No JVD. No bruit. Cardiovascular: irregularly irregular, unable to appreciate murmur, rub or gallop. Pulmonary: Clear to auscultation bilaterally. No rales, rhonchi, or wheezing. Abdomen: Bowel sounds x 4, soft. No rebound, guarding or tenderness. No organomegaly. Extremities: No clubbing, cyanosis or edema. +2 pedal pulses bilaterally. Skin: Warm and dry. Results & Data Vital Signs (Past 12 Hours) Vital Signs Temp Pulse Resp BP BP Pulse Ox 08/12/19 11:16 36.7 C 74 18 143/91 H 91 08/12/19 07:23 36.8 C 76 18 157/91 H 94 08/12/19 03:40 36.4 C L 68 18 195/102 H 97
--- NOTE | 2019-08-13 08:50 | Discharge Summary ---
Date of Service August 12, 2019 Admission HPI Per Admitting Provider CHIEF COMPLAINT: New-onset AFib. HISTORY OF PRESENT ILLNESS: This is an 84-year-old female with past medical history significant for hyperlipidemia, hypertension, chronic kidney disease stage III, urinary incontinence, osteoporosis, gout arthropathy, statin intolerance, who lives alone. He went to PCP because of some ongoing shortness of breath with exertion for a week and imbalance, shaky legs while ambulating since 1 week, and dizziness last 2-3 days. In the PCP's office, the blood pressure was high and she was found to be in new-onset AFib, which was rate controlled and she was advised to come to the ER. Currently resting comfortable and hemodynamically stable. Denies any chest pain. Denies any palpitations. She has a mild headache. No earache. She has some runny nose from allergies. Denies any sore throat. No loss of sense of smell or taste. No dysphagia. Appetite is okay. No nausea, no abdominal pain. Stools are loose, but denies any blood in the stools. She has some incontinence of the urine for some time. No swelling in the legs. Admission Exam Per Admitting Provider GENERAL: The patient is old and frail, not in acute distress. VITAL SIGNS: Temperature 36.8, pulse 72, respiratory rate 20, blood pressure 250/146, oxygen 96% on room air. HEENT: No pallor, no icterus. Pupils equal, round, and reactive to light. Extraocular muscles intact. NECK: No JVD, no neck masses. CARDIOVASCULAR: S1, S2 heard, regular rate and rhythm, no murmur, no gallop. RESPIRATORY SYSTEM: Normal AP diameter. No accessory muscle use. No wheezing, no crackles. ABDOMEN: Soft, bowel sounds present, nontender, no distention. CENTRAL NERVOUS SYSTEM: Alert and oriented. Power 5/5 in all extremities. Sensation is intact. Coordination and movements normal. No pronator drift. Can lift and hold her lower extremities. Position sense intact. EXTREMITIES: No edema, no erythema. Principal Diagnosis Atrial fibrillation, new onset: Tachy-wild syndrome: Hypertensive urgency: Dizziness: Discharge Exam General- No acute distress Head- atraumatic Eyes- PERRL, EOMI, ENT- oropharynx clear Neck- supple, no JVD Lungs- clear to auscultation Heart- irregular rhythm; no murmur Abdomen- normal bowel sounds, soft, nontender Extremities- no calf tenderness Neuro- alert, oriented x 3; PERRL, EOMI; no facial palsy; no dysarthria Skin- warm & dry Discharge Data Allergies Allergy/AdvReac Type Severity Reaction Status Date / Time amlodipine Allergy SWELLING Verified 08/09/19 19:56 IN EXTREMITIES hydralazine Allergy PURITIS Verified 08/09/19 19:56 simvastatin [From Zocor] AdvReac Muscle Pain Verified 08/09/19 19:56 Consultations 08/09/19 21:40 ED Decision to Admit Stat 08/09/19 23:47 Consult Case Management - Discharge Planning Routine 08/10/19 08:00 Consult Cardiology Routine Ordered Studies 08/09/19 21:39 CT angio head w con Urgent CT angio neck with con Urgent CT head/brain wo con Urgent SINGLE VIEW CHEST CLINICAL HISTORY: Atypical chest pain. FINDINGS: An AP, portable, upright chest radiograph is obtained No prior studies are available for comparison at the time of dictation. The examination is degraded by portable technique and patient rotation. The heart is enlarged. The mitral annulus is densely calcified. Nonspecific interstitial thickening is likely chronic. Scattered calcified granulomas are observed. No airspace consolidation or large pleural effusion is identified. No pneumothorax is seen. The skeletal structures are osteopenic. The bony thorax is grossly intact. Calcified joint bodies are noted in the left shoulder. IMPRESSION: Cardiomegaly with no acute cardiopulmonary abnormality. ACT 112: Negative or not required by law. Electronically signed by: Haroldo Mercer M.D. 08/09/2019 7:39 PM Dictated: 08/09/191937 Transcribed: 08/09/191937 UNEN[address]ED CT OF THE BRAIN; CT ANGIOGRAM OF THE BRAIN; CT ANGIOGRAM OF THE NECK CLINICAL HISTORY: Dizziness. COMPARISON STUDY: No priors. TECHNIQUE: Unenhanced axial CT scan of the brain is performed. Subsequently, following the IV administration of 120 of Optiray 320, CT angiogram of the head and neck was performed from the aortic arch to the vertex. Images are reviewed in the axial, sagittal, and coronal planes. 3-D MIPS images are created and assessed. IV contrast was administered without complication. All measurements were calculated based on NASCET criteria. A dose lowering technique was utilized adhering to the principles of ALARA. CT DOSE: 1067.93 mGy.cm FINDINGS: Brain parenchyma: There is age-related involutional change noting moderate subcortical and periventricular microangiopathic disease. There is no hemorrhage, mass effect, or evidence of acute territorial ischemia by CT criteria. There is no evidence of enhancing mass lesion on the angiogram phase images. The ventricles, sulci, and cisterns are prominent secondary to involutional change. Bianchi-white matter differentiation is preserved. No extra- axial fluid collection is seen. Thoracic aorta: Visualized portions of the thoracic aorta are normal in caliber. The aortic arch demonstrates standard 3-vessel anatomy. Right carotid arterial system: The right common carotid artery is widely patent, as are the right internal and external carotid arteries. Left carotid arterial system: The left common carotid artery is widely patent, as are the left internal and external carotid arteries. Mild atherosclerotic plaque is noted in the carotid bulb. Vertebral arteries: The vertebral arteries are widely patent bilaterally and codominant. Subclavian arteries: Widely patent bilaterally. Intracranial vasculature: There is atherosclerotic calcification of the cavernous carotid and vertebral arteries. The internal carotid arteries are patent at the skull base, as are the anterior and middle cerebral arteries bilaterally. The vertebrobasilar system and posterior cerebral arteries are widely patent. The vertebral arteries are codominant. There is no aneurysm, high-grade stenosis, or focal vessel cut off seen throughout the intracranial circulation. Jugular veins: Patent bilaterally. Dural sinuses: Patent. Lung apices: Partially visualized upper lobe lung parenchyma appears clear. Soft tissues: The visualized pharyngeal soft tissues are normal in appearance noting angiographic phase technique. The oropharyngeal airway appears widely patent. The salivary and thyroid glands are normal in appearance. No cervical lymphadenopathy is seen. Skeletal structures: The skeletal structures are osteopenic The calvarium appears intact. The cervical spine is maintained noting mild multilevel spondylo sis. No lytic or blastic lesion is seen. Orbits: The bony orbits are intact. Orbital contents are normal in appearance noting bilateral ocular lens implants. Sinuses and mastoids: There is trace mucosal thickening in the left maxillary antrum. The remaining paranasal sinuses are clear. The mastoid air cells are well pneumatized. IMPRESSION: 1. There is no hemorrhage, mass effect, or evidence of acute territorial ischemia by CT criteria. 2. Unremarkable CT angiogram of the brain. 3. Unremarkable CT angiogram of the neck. ACT 112: Negative or not required by law. Electronically signed by: Haroldo Mercer M.D. 08/09/2019 11:19 PM Dictated: 08/09/192312 Transcribed: 08/09/192312 UNENHANCED CT OF THE BRAIN; CT ANGIOGRAM OF THE BRAIN; CT ANGIOGRAM OF THE NECK CLINICAL HISTORY: Dizziness. COMPARISON STUDY: No priors. TECHNIQUE: Unenhanced axial CT scan of the brain is performed. Subsequently, following the IV administration of 120 of Optiray 320, CT angiogram of the head and neck was performed from the aortic arch to the vertex. Images are reviewed in the axial, sagittal, and coronal planes. 3-D MIPS images are created and assessed. IV contrast was administered without complication. All measurements were calculated based on NASCET criteria. A dose lowering technique was utilized adhering to the principles of ALARA. CT DOSE: 1067.93 mGy.cm FINDINGS: Brain parenchyma: There is age-related involutional change noting moderate subcortical and periventricular microangiopathic disease. There is no hemorrhage, mass effect, or evidence of acute territorial ischemia by CT criteria. There is no evidence of enhancing mass lesion on the angiogram phase images. The ventricles, sulci, and cisterns are prominent secondary to involutional change. Bianchi-white matter differentiation is preserved. No extra- axial fluid collection is seen. Thoracic aorta: Visualized portions of the thoracic aorta are normal in caliber. The aortic arch demonstrates standard 3-vessel anatomy. Right carotid arterial system: The right common carotid artery is widely patent, as are the right internal and external carotid arteries. Left carotid arterial system: The left common carotid artery is widely patent, as are the left internal and external carotid arteries. Mild atherosclerotic plaque is noted in the carotid bulb. Vertebral arteries: The vertebral arteries are widely patent bilaterally and codominant. Subclavian arteries: Widely patent bilaterally. Intracranial vasculature: There is atherosclerotic calcification of the cavernous carotid and vertebral arteries. The internal carotid arteries are patent at the skull base, as are the anterior and middle cerebral arteries bilaterally. The vertebrobasilar system and posterior cerebral arteries are widely patent. The vertebral arteries are codominant. There is no aneurysm, high-grade stenosis, or focal vessel cut off seen throughout the intracranial circulation. Jugular veins: Patent bilaterally. Dural sinuses: Patent. Lung apices: Partially visualized upper lobe lung parenchyma appears clear. Soft tissues: The visualized pharyngeal soft tissues are normal in appearance noting angiographic phase technique. The oropharyngeal airway appears widely patent. The salivary and thyroid glands are normal in appearance. No cervical lymphadenopathy is seen. Skeletal structures: The skeletal structures are osteopenic The calvarium appears intact. The cervical spine is maintained noting mild multilevel spondylosis. No lytic or blastic lesion is seen. Orbits: The bony orbits are intact. Orbital contents are normal in appearance noting bilateral ocular lens implants. Sinuses and mastoids: There is trace mucosal thickening in the left maxillary antrum. The remaining paranasal sinuses are clear. The mastoid air cells are well pneumatized. IMPRESSION: 1. There is no hemorrhage, mass effect, or evidence of acute territorial ischemia by CT criteria. 2. Unremarkable CT angiogram of the brain. 3. Unremarkable CT angiogram of the neck. ACT 112: Negative or not required by law. Electronically signed by: Haroldo Mercer M.D. 08/09/2019 11:19 PM Dictated: 08/09/192312 Transcribed: 08/09/192312 [address]ED CT OF THE BRAIN; CT ANGIOGRAM OF THE BRAIN; CT ANGIOGRAM OF THE NECK CLINICAL HISTORY: Dizziness. COMPARISON STUDY: No priors. TECHNIQUE: Unenhanced axial CT scan of the brain is performed. Subsequently, following the IV administration of 120 of Optiray 320, CT angiogram of the head and neck was performed from the aortic arch to the vertex. Images are reviewed in the axial, sagittal, and coronal planes. 3-D MIPS images are created and assessed. IV contrast was administered without complication. All measurements were calculated based on NASCET criteria. A dose lowering technique was utilized adhering to the principles of ALARA. CT DOSE: 1067.93 mGy.cm FINDINGS: Brain parenchyma: There is age-related involutional change noting moderate subcortical and periventricular microangiopathic disease. There is no hemorrhage, mass effect, or evidence of acute territorial ischemia by CT criteria. There is no evidence of enhancing mass lesion on the angiogram phase images. The ventricles, sulci, and cisterns are prominent secondary to involutional change. Bianchi-white matter differentiation is preserved. No extra- axial fluid collection is seen. Thoracic aorta: Visualized portions of the thoracic aorta are normal in caliber. The aortic arch demonstrates standard 3-vessel anatomy. Right carotid arterial system: The right common carotid artery is widely patent, as are the right internal and external carotid arteries. Left carotid arterial system: The left common carotid artery is widely patent, as are the left internal and external carotid arteries. Mild atherosclerotic plaque is noted in the carotid bulb. Vertebral arteries: The vertebral arteries are widely patent bilaterally and codominant. Subclavian arteries: Widely patent bilaterally. Intracranial vasculature: There is atherosclerotic calcification of the cavernous carotid and vertebral arteries. The internal carotid arteries are patent at the skull base, as are the anterior and middle cerebral arteries bilaterally. The vertebrobasilar system and posterior cerebral arteries are widely patent. The vertebral arteries are codominant. There is no aneurysm, high-grade stenosis, or focal vessel cut off seen throughout the intracranial circulation. Jugular veins: Patent bilaterally. Dural sinuses: Patent. Lung apices: Partially visualized upper lobe lung parenchyma appears clear. Soft tissues: The visualized pharyngeal soft tissues are normal in appearance noting angiographic phase technique. The oropharyngeal airway appears widely patent. The salivary and thyroid glands are normal in appearance. No cervical lymphadenopathy is seen. Skeletal structures: The skeletal structures are osteopenic The calvarium appears intact. The cervical spine is maintained noting mild multilevel spondylosis. No lytic or blastic lesion is seen. Orbits: The bony orbits are intact. Orbital contents are normal in appearance noting bilateral ocular lens implants. Sinuses and mastoids: There is trace mucosal thickening in the left maxillary antrum. The remaining paranasal sinuses are clear. The mastoid air cells are well pneumatized. IMPRESSION: 1. There is no hemorrhage, mass effect, or evidence of acute territorial ischemia by CT criteria. 2. Unremarkable CT angiogram of the brain. 3. Unremarkable CT angiogram of the neck. ACT 112: Negative or not required by law. Electronically signed by: Haroldo Mercer M.D. 08/09/2019 11:19 PM Dictated: 08/09/192312 Transcribed: 08/09/19 2313 Hospital Course (1) Atrial fibrillation, new onset: Rate controlled was controlled Atenolol was on hold for bradycardia with 2 episodes of pause on tele monitor Cardiology on board recommended to to resume atenolol from 100mg to 50mg Continue Eliquis BID Follow up with cardiology in 2 to 4 weeks (2) Tachy-wild syndrome: Telemonitor showed 2 episodes of pause and HR dropped in the 30's Case discussed with cardiology and recommended to decrease Atenolol top 50mg Asymptomatic Follow up with cardiology outpatient (3) Hypertensive urgency: SBP > 200 on admission Continue Lisinopril 30mg Felodipine increased to 5 mg Atenolol decrease to 50mg due to bradycardia BP improved Continue Monitor closely (4) Dizziness: Possible due to Afib and hypertensive urgency CT head/neck showed no hemorrhage, mass effect, or evidence of acute territorial ischemia Continue PT/OT Fall precaution Clinically improves CODE STATUS : FULL CODE DVT PROPHYLAXIS on ELIQUIS DISPOSITION : Discharge home today Total Time Total Time Spent Total Time Spent (In Minutes): 35 minutes Total Time Includes: Examination of the Patient, Discharge Planning, Medication Reconciliation, Communication With Other Providers and Other Discharge Plan Discharge Items Patient Disposition: Home - Self-Care Reason For Visit: A FIB NEW Discharge Diagnosis: ATRIAL FIBRILATION Activity: Resume your previous activity Non-emergency contact: Primary Care Provider Call non-emergency contact if: you have any medication questions Follow-up/Referrals: Myron Torres DO [Primary Care Provider] - 08/18/19 11:20 am (08/18/2019 11:20 AM Provider Myron Torres DO Department General Internal Medicine [facility] ) Diet: Heart Healthy Addtl Attending Provider Instructions: Follow up with your primary care provider Dr. Torres on 08/18/19 Follow up with cardiology Dr. Hoyos in 2 to 4 weeks Continue monitor your blood pressure and bring your blood pressure log at your next appointment with your physician Fall precaution Avoid any activity with high fall risks Medication Instructions: Eliquis Your condition is typically treated with an anticoagulant. Anticoagulants will thin your blood to help prevent new clots. You should take her medication exactly as directed. Never skip a dose. Never take a double dose. If you miss a dose, take it as soon as you remember. Avoid NSAIDs (Motrin, Aleve, Naproxen, Ibuprofen, Advil, Meloxicam,..) due to risks of bleeding Call your Primary Care doctor if you experience any of the following: Swelling or Pain in your leg Sudden, continuous pain deep in a muscle Pain that worsens when you are active or when you stand still for a long time Chest Pain Sudden Shortness of Breath Rapid or pounding heart beat Fainting Dizziness Cough with blood or bloody sputum Sweating more than normal Bruises Heavy or uncontrolled bleeding Blood in your urine, stool or vomit Black or tarry stools Pending Studies at Discharge: No Stand-Alone Forms: My [facility], Smoking Cessation Medications and DC Order Prescriptions: New Eliquis 5 mg Tablet 5 mg PO BID 30 Days Qty: 60 RF: 0 felodipine 5 mg Tablet Extended Release 24 Hr 5 mg PO QAM Qty: 30 RF: 0 atenolol 50 mg Tablet 50 mg PO QAM Qty: 30 RF: 0 Continued hydrochlorothiazide 12.5 mg capsule 12.5 mg PO DAILY RF: 0 lisinopril 30 mg tablet 30 mg PO DAILY RF: 0 vitamin B complex Tablet 1 tab PO DAILY RF: 0 cholecalciferol (vitamin D3) [Vitamin D3] 25 mcg (1,000 unit) Tablet 25 mcg PO DAILY RF: 0 melatonin 3 mg Tablet 3 mg PO HS RF: 0 Systane (propylene glycol) 0.4-0.3 % Drops 1 drp OPHTHALMIC (EYE) BID PRN (Reason: Dry Eyes) RF: 0 Discontinued atenolol [Tenormin] 100 mg tablet 100 mg PO DAILY RF: 0 Discharge Orders: Discharge Order (Routine); Ordered 08/12/19 Ordered By: Shu Tiwari/Other Patient Handouts: Apixaban oral tablets, Atenolol tablets, Felodipine extended-release tablets Admission Data Admit Date/Time: 08/09/19 22:43 Attending Provider: Shu Mosher Admit Provider: [facility] Primary Care Provider: Myron Torres Other Providers: [facility] ; Kris Hoyos Other Interventions: Discharge Summary Assessment (RN) Last Done: 08/12/19 15:22 DC Date/Time DO NOT enter until pt leaves facility: 08/12/19 16:33
== END 2019-08-12 16:33 | disposition home or self-care (01) | DRG 310 ==
LOC: ED 16:30 → SUATTDRO 22:43 → 2S 22:43